=== PATIENT | male | born 2000 | race Caucasian/White ===

== ENCOUNTER 2025-07-02 21:15 | Emergency (ER) | payer OTHER ==
[~2025-07-02] VITALS: Ht 182.9 cm; Wt 109.0 kg
[2025-07-02 21:28] VITALS: O2SAT 97
[2025-07-02 22:10] VITALS: TEMP 36.7; O2SAT 99
[2025-07-03 01:30] VITALS: BP 156/75; PULSE 73; RESP 18
[2025-07-03] MEDS: IBUPROFEN 600MG TABLET PO ONE (01:30)
[2025-07-03] MEDS ORDERED: METH-653 MT (02:18)
[2025-07-03] MEDS ORDERED: IBUP-1455 MT (02:18)
== END 2025-07-03 02:38 | disposition home or self-care (01) ==
LOC: ER 21:15
DX: S09.8XXA Other specified injuries of head, initial encounter (principal); V49.40XA Driver injured in collision with unspecified motor vehicles in traffic accident, initial encounter; Y92.410 Unspecified street and highway as the place of occurrence of the external cause; Y93.89 Activity, other specified; Y99.8 Other external cause status
CPT/HCPCS: 99284